=== PATIENT | female | born 1965 | race Caucasian/White ===

== ENCOUNTER 2017-02-17 18:52 | Emergency (ER) | payer OTHER ==
[2017-02-17 19:27] LABS: Basophils % (Auto) 0.6 % (0.0-1.8); Eosinophils % (Auto) 2.4 % (0.0-4.3); Hematocrit 34.4 % (30.3-42.9); Hemoglobin 11.2 gm/dl (10.1-14.3); Mean Corpuscular HGB Conc 32 % (30-34); Mean Corpuscular Hemoglobin 26 pg (28-32); Mean Corpuscular Volume 81 fl (79-97); Platelet Count 280 K/mm3 (140-440); Red Blood Count 4.28 M/mm3 (3.65-5.03); Red Cell Distribution Width 13.2 % (13.2-15.2); White Blood Count 12.5 K/mm3 (4.5-11.0)
[2017-02-17 19:48] LABS: Anion Gap 23 mmol/L; BUN/Creatinine Ratio 31; Blood Urea Nitrogen 22 mg/dL (7-17); Carbon Dioxide 20 mmol/L (22-30); Chloride 90.8 mmol/L (98-107); Glucose 190 mg/dL (65-100); Potassium 4.4 mmol/L (3.6-5.0); Sodium 129 mmol/L (137-145)
--- NOTE | 2017-02-17 21:20 | XRay Report ---
FINAL REPORT PROCEDURE: XR CHEST ROUTINE 2V TECHNIQUE: PA and lateral chest radiographs were obtained. CPT 87816 HISTORY: Shortness of breath COMPARISON: No prior studies available for comparison. FINDINGS: Heart: Normal. Mediastinum/Vessels: Normal. Lungs/Pleural space: Normal. Bony thorax: No acute osseous abnormality. Other: IMPRESSION: Negative examination.
--- NOTE | 2017-02-18 03:56 | Emergency Department Report ---
<HALEY PEARSON T - Last Filed: 02/18/17 06:11> ED Chest Pain HPI - General Chief Complaint: Dyspnea/Respdistress Stated Complaint: CP Time Seen by Provider: 02/18/17 03:28 Source: patient Mode of arrival: Ambulatory Limitations: No Limitations - History of Present Illness Initial Comments: 51 yo female who comes in due to chest pain. She states that it started on yesterday around 4pm while at rest. Her son admits that the patient had a similar episode in the past. She describes the pain as midsternal which radiates to her neck, 12/17, aching/sharp in nature. Nothing makes the pain better or worse. 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 Hx of asthma, diabetes, and hypertension. MD Complaint: chest pain -: days(s) (one ) Onset: during rest Pain Location: substernal (midsternal ) Pain Radiation: neck Severity: moderate Severity scale (0 -10): 7 Quality: aching, sharp Consistency: constant, now resolved Improves With: nothing Worsens With: nothing Context: other (none) Other Symptoms: cough Treatments Prior to Arrival: none Aspirin use within the Past 7 Days: (0) No - Related Data On Oral Contraceptives: No Previous Rx's Medication Instructions Recorded Last Taken Type traMADol [Ultram 50 MG tab] 50 mg PO Q6HR PRN #20 tablet 02/18/17 Unknown Rx Allergies Allergy/AdvReac Type Severity Reaction Status Date / Time No Known Allergies Allergy Unverified 02/17/17 19:03 Heart Score - HEART Score History: Slightly suspicious EKG: Normal Age: 45-65 Risk factors: > 3 risk factors or hx of atherosclerotic disease Troponin: < normal limit HEART Score: 3 ED Review of Systems ROS: Stated complaint: CP Other details as noted in HPI Constitutional: denies: chills, fever Eyes: denies: eye pain, eye discharge, vision change Respiratory: cough Cardiovascular: as per HPI Endocrine: no symptoms reported Gastrointestinal: denies: abdominal pain, nausea, diarrhea Genitourinary: denies: urgency, dysuria, discharge Musculoskeletal: denies: back pain, joint swelling, arthralgia Skin: denies: rash, lesions Neurological: denies: headache, weakness, paresthesias Psychiatric: denies: anxiety, depression Hematological/Lymphatic: denies: easy bleeding, easy bruising ED Past Medical Hx - Past Medical History Previous Medical History?: Yes Hx Hypertension: Yes Hx Diabetes: Yes Hx Asthma: Yes - Surgical History Past Surgical History?: Yes Additional Surgical History: , gallbladder 2016 - Social History Smoking Status: Never Smoker Substance Use Type: None - Medications Home Medications: Home Medications Medication Instructions Recorded Confirmed Last Taken Type traMADol [Ultram 50 MG tab] 50 mg PO Q6HR PRN #20 tablet 02/18/17 Unknown Rx ED Physical Exam - General Limitations: No Limitations General appearance: alert, in no apparent distress - Head Head exam: Present: atraumatic, normocephalic - Eye Eye exam: Present: normal appearance - ENT ENT exam: Present: mucous membranes moist - Neck Neck exam: Present: normal inspection - Respiratory Respiratory exam: Present: normal lung sounds bilaterally, chest wall tenderness (midsternal ). Absent: respiratory distress - Cardiovascular Cardiovascular Exam: Present: regular rate, normal rhythm. Absent: systolic murmur, diastolic murmur, rubs, gallop - GI/Abdominal GI/Abdominal exam: Present: soft, normal bowel sounds - Extremities Exam Extremities exam: Present: normal inspection - Back Exam Back exam: Present: normal inspection - Neurological Exam Neurological exam: Present: alert, oriented X3 - Psychiatric Psychiatric exam: Present: normal affect, normal mood - Skin Skin exam: Present: warm, dry, intact, normal color. Absent: rash ED Course Vital Signs 02/17/17 02/18/17 02/18/17 19:03 02:21 02:29 Temperature 98.1 F Pulse Rate 83 85 Respiratory 19 16 Rate Blood Pressure 124/78 O2 Sat by Pulse 100 99 Oximetry 02/18/17 02/18/17 02/18/17 02:30 02:46 03:00 Temperature Pulse Rate 78 76 85 Respiratory 13 13 15 Rate Blood Pressure 132/73 132/73 120/78 O2 Sat by Pulse 98 97 98 Oximetry 02/18/17 02/18/17 02/18/17 03:16 04:22 04:30 Temperature Pulse Rate 82 79 Respiratory 14 16 Rate Blood Pressure 120/78 120/78 103/69 O2 Sat by Pulse 97 99 98 Oximetry 02/18/17 02/18/17 02/18/17 05:00 05:30 06:00 Temperature Pulse Rate 77 76 Respiratory 14 13 Rate Blood Pressure 112/69 112/69 112/66 O2 Sat by Pulse 95 97 98 Oximetry 02/18/17 06:48 Temperature Pulse Rate Respiratory Rate Blood Pressure 112/66 O2 Sat by Pulse 100 Oximetry - Reevaluation(s) Reevaluation #1: 02/18/17 05:49 Patient resting quietly in the room. Plan to discharge home after ivf's and a gi cocktail. Patient to follow up with her PMD on discharge. Reevaluation #2: 02/18/17 06:11 Patient checked out to Dr. Zhong. Second ekg and troponin pending. Home if negative. 02/18/17 06:12 BRANDON score - Brandon Score Age > 65: (0) No Aspirin use within the Past 7 Days: (0) No 3 or more CAD Risk Factors: (1) Yes 2 or more Angina events in past 24 hrs: (0) No Known CAD with more than 50% Stenosis: (0) No Elevated Cardiac Markers: (0) No ST Deviation Greater than 0.5mm: (0) No BRANDON Score: 1 ED Medical Decision Making - Lab Data Result diagrams: 02/17/17 19:15 02/17/17 19:15 - EKG Data EKG shows normal: sinus rhythm Rate: normal - EKG Data When compared to previous EKG there are: no significant change Interpretation: normal EKG - Radiology Data Radiology results: report reviewed Normal chest radiograph. - Medical Decision Making Costochondritis Atypical chest pain Dehydration Viral syndrome - Differential Diagnosis atypical chest pain, dehydration, hyponatremia Critical care attestation.: If time is entered above; I have spent that time in minutes in the direct care of this critically ill patient, excluding procedure time. ED Disposition Clinical Impression: Atypical chest pain Disposition: DC-01 TO HOME OR SELFCARE Condition: Stable Instructions: Chest Pain (ED) Additional Instructions: Follow up with your doctor. Return if symptoms worsen. Prescriptions: traMADol [Ultram 50 MG tab] 50 mg PO Q6HR PRN #20 tablet PRN Reason: Pain Referrals: AMAURY CLANCY MD [Primary Care Provider] - 3-5 Days <TERENCE ZHONG - Last Filed: 02/18/17 07:33> ED Medical Decision Making - Lab Data Result diagrams: 02/17/17 19:15 02/17/17 19:15 - Medical Decision Making pt s/o by Dr Pearson to d/c if repeat trop and ekg normal. repeats are unchanged so pt will be discharge. Patient is pain-free ED Disposition Is pt being admited?: No Does the pt Need Aspirin: No Time of Disposition: 07:18
[2017-02-18] MEDS ORDERED: ALUM-MAG HYDROX-SIMETH 200-200-20MG/5ML PO ONE (04:41)
[2017-02-18] MEDS ORDERED: NACL 0.9% 500 ML 500 ML IV ONE (04:44)
[2017-02-18 06:34] LABS: Bilirubin,Urine NEG (Negative); Blood,Urine NEG (Negative); Ketones,Urine NEG (Negative); Leukocyte Esterase,Urine NEG (Negative); Nitrite,Urine NEG (Negative); Protein,Urine <15 mg/dL mg/dL (Negative); Urobilinogen,Urine < 2.0 mg/dL (<2.0); WBC,Urine < 1.0 /HPF (0.0-6.0)
[2017-02-18 07:02] LABS: RBC,Urine < 1.0 /HPF (0.0-6.0)
[2017-02-18 08:39] VITALS: BP 111/64
== END 2017-02-18 08:40 | disposition home or self-care (01) ==
LOC: ED 18:52
DX: R07.89 Other chest pain (principal); I10 Essential (primary) hypertension; E11.9 Type 2 diabetes mellitus without complications; J45.909 Unspecified asthma, uncomplicated
CPT/HCPCS: 36415; 71020; 80048; 81001; 84484; 84703; 85025; 93005; 93010; 99284; J7040